=== PATIENT | male | born 1940 | race Caucasian/White ===

== ENCOUNTER 2018-12-14 08:04 | Day surgery (SDC) | payer OTHER ==
[~2018-12-14] VITALS: Ht 180.3 cm; Wt 59.0 kg
[~2018-12-14 08:04] MED LIST: ATOR10TA PO; CLOP75TA28 PO; DONE10TA17 PO; FLUT250M2 INH; GABA-339 PO; LISI-646 PO; MEMA14CA PO; MET25T PO; METF500T PO; METH5TAB2 PO
[2018-12-14] MEDS ORDERED: LIDOCAINE 2%HCL (LOCAL ANESTH.) INJ 20ML MDV ONE (08:46)
[2018-12-14] MEDS ORDERED: IODIXANOL 320MG/ML 100ML BTL IV ONE (08:46)
[2018-12-14] MEDS ORDERED: ANGIOMAX 250 MG VIAL IV ONE (08:55)
[2018-12-14] MEDS ORDERED: MIDAZOLAM HCL 1MG/1ML-2 ML VIAL ONE (08:56)
[2018-12-14] MEDS ORDERED: SODIUM CHL 0.9% 50 ML ONE (08:56)
[2018-12-14] MEDS ORDERED: fentaNYL CITRATE 100 MCG/2 ML VL ONE (08:56)
[2018-12-14] MEDS ORDERED: VERAPAMIL 2.5MG/ML INJ 2ML VIAL IV ONE ×2 (09:22→09:54)
[2018-12-14] MEDS ORDERED: NITROGLYCERIN 5MG/ML 10ML VIAL IV ONE (09:54)
[2018-12-14] MEDS ORDERED: diphenhdrAMINE HCL 50 MG/1 ML VL ONE (09:55)
[2018-12-14] MEDS ORDERED: CLOPIDOGREL BISULFATE 75 MG TAB ONE (10:59)
[2018-12-14] MEDS ORDERED: ASPirin 325 MG TAB ONE (10:59)
[2018-12-14] MEDS ORDERED: ASPI-404 PO (12:35)
== END 2018-12-14 13:20 | disposition home or self-care (01) ==
LOC: CATH 08:04
PROVIDERS: ATTEND Internal Medicine
DX: E11.51 Type 2 diabetes mellitus with diabetic peripheral angiopathy without gangrene (principal); I70.292 Other atherosclerosis of native arteries of extremities, left leg; I25.2 Old myocardial infarction; I25.10 Atherosclerotic heart disease of native coronary artery without angina pectoris; I10 Essential (primary) hypertension; E78.5 Hyperlipidemia, unspecified; J44.9 Chronic obstructive pulmonary disease, unspecified; F03.90 Unspecified dementia, unspecified severity, without behavioral disturbance, psychotic disturbance, mood disturbance, and anxiety; R41.0 Disorientation, unspecified; F17.210 Nicotine dependence, cigarettes, uncomplicated; Z95.818 Presence of other cardiac implants and grafts; Z79.84 Long term (current) use of oral hypoglycemic drugs; Z79.02 Long term (current) use of antithrombotics/antiplatelets; Z79.899 Other long term (current) drug therapy; Z98.890 Other specified postprocedural states
CPT/HCPCS: 37229; 76937; C1724; C1725; C1769; C1887; C1894; J0583; J1200; J1644; J2250; J3010; J3490; J7030; Q9967; 76942; 99152; 99153

== ENCOUNTER 2019-02-14 09:58 | Emergency (ER) | payer OTHER ==
[~2019-02-14] VITALS: Ht 167.6 cm; Wt 40.8 kg
[~2019-02-14 09:58] MED LIST changes: +ASPI-404 PO
[2019-02-14] MEDS ORDERED: EPINEPHrine HCL 1 MG/10 ML SYRG IV ONE (09:59)
[2019-02-14] MEDS ORDERED: SODIUM BICARBONATE 8.4% INJ 50ML SYRINGE IV ONE (09:59)
[2019-02-14 10:05] VITALS: BP 101/78
== END 2019-02-14 10:14 | disposition expired ==
LOC: EDUNIT# 09:58 → ER 09:58 → EDBD 09:58 → ER 10:14
DX: S31.010A Laceration without foreign body of lower back and pelvis without penetration into retroperitoneum, initial encounter (principal); R41.82 Altered mental status, unspecified; I48.91 Unspecified atrial fibrillation; E11.9 Type 2 diabetes mellitus without complications; I10 Essential (primary) hypertension; Z79.82 Long term (current) use of aspirin; Z79.01 Long term (current) use of anticoagulants; Z79.899 Other long term (current) drug therapy; W25.XXXA Contact with sharp glass, initial encounter; Y93.89 Activity, other specified; Y92.89 Other specified places as the place of occurrence of the external cause; Y99.8 Other external cause status
CPT/HCPCS: 31500; 92950; 99285; J0171